=== PATIENT | female | born 1975 | race American Indian/Alaskan Native ===

== ENCOUNTER 2019-03-29 08:08 | Outpatient (CLI) | payer MEDICAID ==
--- NOTE | 2019-03-29 15:13 | Magnetic Resonance Report ---
Bilateral breast MRI with and without contrast. History: Positive BRCA1, abnormal left mammogram Procedure: Coronal STIR, axial T1 and T2-weighted fat-sat images were obtained precontrast. 14 cc Pr oHance was injected intravenously and serial axial T1-weighted images with fat saturation were obtain ed postcontrast. 3-D MIP projections, Kinetic analysis and subtraction imaging was utilized to evalua te. A dedicated breast coil was utilized for image acquisition. Comparison: Diagnostic left mammogram 01/01/2019, bilateral screening mammogram 12/11/2018, MR breast 1 Findings: Background level of enhancement is prominent on the left and moderate on the right. No suspicious axillary or clavicular nodes are identified. No abnormal bone marrow signal is seen. No significant chest wall enhancement is noted. Left breast: Prominent background activity is seen, particularly in breast tissue in the posterior as pect of the breast, most in the upper outer quadrant far posteriorly. This does not correspond direct ly with the density of concern mammographically. No mass lesion is seen in this area. The background activity in this breast tissue, more noticeable than on prior study, makes evaluation more difficult but no definite lesions are seen. Right breast: Moderate background activity is noted in the posterior breast tissue, most in the upper outer quadrant. This is similar to the left though less prominent. No discrete lesions are seen. Impression: No lesion is seen corresponding to the area of concern mammographically. Prominent backgr ound activity, particularly in the left breast, makes evaluation more difficult as above but no highl y suspicious lesion is noted. I would suggest follow-up left mammogram in 6 months. BI-RADS 2, benign Signer Name: Arturo Chavarria MD Signed: 03/29/2019 3:09 PM Workstation Name: [id number]
== END 2019-03-29 08:09 | disposition home or self-care (01) ==
LOC: SPVIMAG 08:08
PROVIDERS: ATTEND Surgery
DX: R92.2 Inconclusive mammogram (principal); Z15.01 Genetic susceptibility to malignant neoplasm of breast
CPT/HCPCS: A9577; C8908; 77049

== ENCOUNTER 2020-05-17 09:19 | Outpatient (CLI) | payer BC ==
--- NOTE | 2020-05-17 16:34 | Magnetic Resonance Report ---
Bilateral breast MR without and with contrast. History: Patient at high risk for breast malignancy based upon genetic mutation. Comparison: 12/16/2019, 03/29/2019. Technique: Multiplanar multisequence MR images of the breast were obtained before and after the intra venous administration of 15 mL of MultiHance contrast agent. Post processing analysis and review was performed on a separate computer workstation. Findings: Breast composition is heterogenously dense. There is mild background parenchymal enhancement bilatera lly. RIGHT BREAST: No discrete enhancing mass, dominant focus, or other abnormal enhancement is identified within the right breast. LEFT BREAST: No discrete enhancing mass, dominant focus, or other abnormal enhancement is identified within the left breast. There are two enlarged right level III subpectoral lymph nodes which measure up to 1 x 1 cm with loss of fatty drew noted. No abnormal left axillary lymph nodes. No abnormal internal mammary lymph nodes . Impression: No suspicious enhancement within either breast to suggest the presence of breast malignancy. There are two enlarged right level III subpectoral lymph nodes which measure up to 1 x 1 cm with loss of fatty drew noted. The clinical significance of these is unclear. Given the asymmetric appearance, a dedicated CT of the chest is recommended for further evaluation and to assess for possible additio nal findings within the chest. These would not be amenable to ultrasound-guided biopsy. BIRADS 0: Incomplete--Needs Additional Imaging Evaluation. A normal MRI does not exclude the presence of some forms of breast malignancy as literature reports s uggest that some forms of ductal carcinoma in situ or lobular carcinoma, particularly, may not be det ected on MRI. The sensitivity and specificity of MRI for cancers under 5 mm may be reduced. MRI does not replace the recommendation for annual conventional mammographic evaluation and should be used as an adjunct to mammography and physical examination as necessary. Signer Name: Earle Benitez MD Signed: 05/17/2020 4:29 PM Workstation Name: [id number]
== END 2020-05-17 09:20 | disposition home or self-care (01) ==
LOC: SPVIMAG 09:19
PROVIDERS: ATTEND Surgery
DX: R92.8 Other abnormal and inconclusive findings on diagnostic imaging of breast (principal); Z15.89 Genetic susceptibility to other disease; Z80.3 Family history of malignant neoplasm of breast
CPT/HCPCS: A9577; C8908; 77049

== ENCOUNTER 2020-06-14 07:39 | Outpatient (CLI) | payer BC ==
[2020-06-14 08:49] LABS: Blood Urea Nitrogen 10 mg/dL (7-17)
--- NOTE | 2020-06-14 10:09 | Cat Scan Report ---
CT chest w con INDICATION: MAIN. TECHNIQUE: All CT scans at this location are performed using CT dose reduction for ALARA by means of automated e xposure control. COMPARISON: None FINDINGS: Mediastinum, drew and axillae are negative. Upper abdomen is unremarkable. No significant pulmonary o r pleural lesions. IMPRESSION: 1. No significant abnormality. Signer Name: Venkatesh Solis MD Signed: 06/14/2020 10:05 AM Workstation Name: [id number]
== END 2020-06-14 07:40 | disposition home or self-care (01) ==
LOC: CT 07:39
PROVIDERS: ATTEND Surgery
DX: R92.2 Inconclusive mammogram (principal); Z15.89 Genetic susceptibility to other disease; Z80.3 Family history of malignant neoplasm of breast
CPT/HCPCS: 36415; 71260; 82565; 84520; Q9967

== ENCOUNTER 2020-12-20 13:33 | Outpatient (CLI) | payer BC ==
--- NOTE | 2020-12-20 17:37 | Mammography Report ---
DIGITAL SCREENING MAMMOGRAM WITH CAD, 12/20/2020 CLINICAL INFORMATION / INDICATION: Routine screening mammography. TECHNIQUE: Digital bilateral 2D mammography was obtained in the craniocaudal and mediolateral obliqu e projections. This examination was interpreted with the benefit of Computer-Aided Detection analysis . COMPARISON: 12/16/2019 FINDINGS: Breast Density: The breasts are heterogeneously dense, which may obscure small masses. No dominant mass, suspicious calcifications, or architectural distortion in either breast. No interval change. IMPRESSION: No mammographic evidence of malignancy. Follow up recommendation: Routine yearly BI-RADS Category 1: Negative. A "normal" or negative report should not discourage follow up or biopsy of a clinically significant f inding. A written summary of these findings will be mailed to the patient. The patient will be entered into a mammography reporting system which will generate a reminder letter for the patient's next appointmen t at the appropriate interval. The [employer] recommends yearly mammograms starting at age 40 and continuing as l constantin as a woman is in good health. Breast MRI is recommended for women with an approximate 20-25% or greater lifetime risk of breast cancer, including women with a strong family history of breast or ova jeovanny cancer or who have been treated for Hodgkin's disease. Signer Name: Kinga Dallas MD Signed: 12/20/2020 5:32 PM Workstation Name: [id number]
== END 2020-12-20 13:34 | disposition home or self-care (01) ==
LOC: SPVWC 13:33
PROVIDERS: ATTEND Surgery
DX: Z12.31 Encounter for screening mammogram for malignant neoplasm of breast (principal)
CPT/HCPCS: 77063; 77067